=== PATIENT | female | born 1960 | race Caucasian/White ===

== ENCOUNTER → 2018-09-22 | Outpatient (CLI) | payer OTHER ==
--- NOTE | 2018-09-22 15:37 | Diagnostic Imaging Report ---
EXAMINATION: Renal ultrasound. CLINICAL HISTORY :Hematuria COMPARISON: <None available.> TECHNIQUE: Grayscale and color Doppler evaluation of the kidneys and bladder was performed in transverse and longitudinal planes. DISCUSSION: RIGHT KIDNEY: The right kidney measures 11.4 cm in length and shows normal renal cortical echogenicity. Mild fullness of the collecting system without overt hydronephrosis. No shadowing calculus or solid or cystic mass lesion. LEFT KIDNEY: The left kidney measures 10 cm in length and shows normal renal cortical echogenicity. 1.5 x 1.7 x 1.5 cm round anechoic structure without internal solid component or vascularity by color Doppler analysis, compatible with a simple cyst in the interpolar left kidney. No solid mass, hydronephrosis. BLADDER: Unremarkable. Right and left ureteral jets are identified. IMPRESSION: Mild fullness of the right renal collecting system may be a consequence of scan timing as the right ureteral-bladder jet was identified. In the setting of hematuria, consider CT urogram for more sensitive evaluation for renal-ureteral calculi. Simple left renal cyst. Signed by: Dr. Vineet Savage M.D. on 09/22/2018 3:33 PM
== END ==
LOC: US 13:44
PROVIDERS: ATTEND Internal Medicine
DX: R31.9 Hematuria, unspecified (principal)
CPT/HCPCS: 76770

== ENCOUNTER 2018-12-11 11:10 | Inpatient (IN) | payer OTHER ==
[~2018-12-11] VITALS: Ht 167.6 cm; Wt 75.8 kg
--- OUTSIDE RECORDS SUMMARY | 2018-12-11 11:12 | XMS REPORT ---
Author [facility] Address Unknown Phone Unavailable Care Team Providers Care Rug Receiving Clerk Name Role Phone Lisa SOLO Unavailable Unavailable Payers Payer Name Policy Type Policy Number Effective Date Expiration Date Problems This patient has no known problems. Allergies, Adverse Reactions, Alerts Allergy Name Allergy Type Status Severity Reaction(s) Onset Date Inactive Date Treating Clinician Comments No Known Allergies DA Active U 2018-04-22 00:00:00 No Known Allergies DA Active U 2015-05-18 00:00:00 Medications This patient has no known medications. Results Test Description Test Time Test Comments Text Results Atomic Results Result Comments US RENAL RETROPERITONEAL COMP 2018-09-22 15:29:00 [facility] [address] [place] [address] Patient Name: STACEY VANEGAS MR #: [id number] : 1960 Age/Sex: 57/F Req #: [id number] Adm Physician: Ordered by: MOOSE SOLO MD Report #: [id number] Location: US Room/Bed: Procedure: [id number] US/US RENAL RETROPERITONEAL COMP Exam Date: 09/22/18 Exam Time: 1408 REPORT STATUS: Signed EXAMINATION: Renal ultrasound. CLINICAL HISTORY :Hematuria COMPARISON: <None available.> TECHNIQUE: Grayscale and color Doppler evaluation of the kidneys and bladder was performed in transverse and longitudinal planes. DISCUSSION: RIGHT KIDNEY: The right kidney measures 11.4 cm in length and shows normal renal cortical echogenicity. Mild fullness of the collecting system without overt hydronephrosis. No shadowing calculus or solid or cystic mass lesion. LEFT KIDNEY: The left kidney measures 10 cm in length and shows normal renal cortical echogenicity. 1.5 x 1.7 x 1.5 cm round anechoic structure without internal solid component or vascularity by color Doppler analysis, compatible with a simple cyst in the interpolar left kidney. No solid mass, hydronephrosis. BLADDER: Unremarkable. Right and left ureteral jets are identified. IMPRESSION: Mild fullness of the right renal collecting system may be a consequence of scan timing as the right ureteral- bladder jet was identified. In the setting of hematuria, consider CT urogram for more sensitive evaluation for renal-ureteral calculi. Simple left renal cyst. Signed by: Dr. Odalis Drummond M.D. on 09/22/2018 3:33 PM Dictated By: ODALIS DRUMMOND MD [id number] Transcribed By: COLIN on 09/22/18 1533 COPY TO: MOOSE SOLO MD
[2018-12-11] MEDS ORDERED: ASPIRIN 81 MG CHEW TAB PO ONE ×3 (11:15→14:15)
[2018-12-11] MEDS ORDERED: NITROGLYCERIN 2% OINT 1 GM PKT TOP ONE (11:30)
[2018-12-11 11:40] LABS: BASOPHILS # (AUTO) 0.1 (0.0-0.1); BASOPHILS % 0.8 % (0.0-1.0); EOSINOPHILS # (AUTO) 0.6 (0.0-0.4); HEMATOCRIT 36.3 % (34.2-44.1); HEMOGLOBIN 12.1 g/dL (12.0-16.0); LYMPHOCYTES # (AUTO) 3.7 (1.0-3.2); LYMPHOCYTES % 36.6 % (18.0-39.1); MEAN CORPUSCULAR HEMOGLOBIN 30.2 pg (28-32); MEAN CORPUSCULAR HGB CONC 33.3 g/dL (31-35); MEAN CORPUSCULAR VOLUME 90.5 fL (81-99); MONOCYTES % 9.4 % (4.4-11.3); NEUTROPHILS # (AUTO) 4.8 (2.1-6.9); NEUTROPHILS % 46.7 % (38.7-80.0); PLATELET COUNT 268 x10e3/uL (140-360); RED BLOOD COUNT 4.01 x10e6/uL (3.6-5.1); RED CELL DISTRIBUTION WIDTH 13.7 % (11.7-14.4)
[2018-12-11 11:52] LABS: INR 0.91; PROTHROMBIN TIME 12.7 seconds (11.9-14.5)
[2018-12-11 11:53] LABS: PARTIAL THROMBOPLASTIN TIME 29.2 seconds (23.8-35.5)
[2018-12-11 11:57] LABS: ALANINE AMINOTRANSFERASE 23 IU/L (0-55); ALBUMIN 3.3 g/dL (3.5-5.0); ALKALINE PHOSPHATASE 104 IU/L (40-150); ANION GAP 12.6 mmol/L (8-16); BLOOD UREA NITROGEN 18 mg/dL (7-26); BUN/CREATININE RATIO 21 (6-25); CALCIUM 9.2 mg/dL (8.4-10.2); CARBON DIOXIDE 26 mmol/L (22-29); CHLORIDE 108 mmol/L (98-107); CREATINE KINASE 74 IU/L (29-168); CREATININE, SERUM 0.87 mg/dL (0.57-1.11); EST GLOMERULAR FILTRATION RATE > 60 ML/MIN (60-); GLUCOSE 107 mg/dL (74-118); POTASSIUM 3.6 mmol/L (3.5-5.1); SODIUM 143 mmol/L (136-145)
[2018-12-11 12:06] LABS: BILIRUBIN,URINE NEGATIVE (NEGATIVE); CLARITY,URINE HAZY (CLEAR); COLOR,URINE YELLOW (YELLOW); KETONES,URINE NEGATIVE (NEGATIVE); LEUKOCYTE ESTERASE ,URINE NEGATIVE (NEGATIVE); NITRITE,URINE NEGATIVE (NEGATIVE); PROTEIN,URINE DIPSTICK NEGATIVE (NEGATIVE); URINE UROBILINOGEN 0.2 mg/dL (0.2 - 1)
[2018-12-11 12:08] LABS: BACTERIA,URINE FEW /HPF; EPITHELIAL CELLS,URINE FEW /LPF; MUCUS,URINE MANY (RARE); WBC,URINE (MAN) 0-5 /HPF (0-5)
--- NOTE | 2018-12-11 12:30 | Diagnostic Imaging Report ---
Examination: Single AP view of the chest. COMPARISON: None. INDICATION: Chest pain IMPRESSION: 1. Lines and Tubes: None 2. Lungs are grossly clear. No consolidation or effusion. 3. Cardiomediastinal silhouette is normal. Pulmonary vasculature is normal. 4. No acute bony abnormalities. Signed by: Dr. William Gabriel M.D. on 12/11/2018 12:26 PM
[2018-12-11] MEDS ORDERED: KETOROLAC TROMETHAMINE 30 MG/ML VIAL IV ONE (13:30)
[2018-12-11] MEDS ORDERED: ONDANSETRON HCL INJ 2MG/ML 2ML 2 MG/ML VIAL IV ONE (13:30)
[2018-12-11] MEDS ORDERED: MORPHINE SULFATE INJ 4 MG/ML INJ 1ML IV ONE (13:30)
[2018-12-11] MEDS ORDERED: NITROGLYCERIN 0.4 MG SUBL SL PRN (14:15)
[2018-12-11] MEDS ORDERED: FAMOTIDINE 20 MG TAB PO SCH (14:15)
[2018-12-11] MEDS ORDERED: ONDANSETRON HCL INJ 2MG/ML 2ML 2 MG/ML VIAL IV PRN (14:15)
[2018-12-11 14:44] LABS: CREATINE KINASE MB 0.9 ng/mL (0-5.0)
--- NOTE | 2018-12-11 15:13 | NUR ---
received to rm 108 aaox3 no distress noted, assessment and hx complete, oriented to rm., respirations even/unlabored, r ac 20g no ss of infiltration noted, no other co voiced call light in reach will continue ot monitor
[2018-12-11] MEDS: MORPHINE SULFATE INJ 4 MG/ML INJ 1ML IV PRN ×2 (15:34→22:04)
[2018-12-11 15:50] VITALS: BP 122/57
[2018-12-11 16:33] VITALS: BP 122/57
[2018-12-11] MEDS ORDERED: ISOSORBIDE MONO30 MG PO (16:53)
[2018-12-11] MEDS ORDERED: COREG3.125 MG PO (16:53)
[2018-12-11] MEDS ORDERED: CLOPIDOGREL75 MG PO (16:53)
[2018-12-11] MEDS ORDERED: ASPIRIN81 MG PO (16:53)
[2018-12-11] MEDS ORDERED: POTASSIUM CHLO10 ME1 PO (16:53)
[2018-12-11] MEDS ORDERED: LOSARTAN POTASS25 MG PO (16:53)
[2018-12-11] MEDS ORDERED: BUPROPION HCL100 MG PO (16:53)
[2018-12-11] MEDS ORDERED: TIZANIDINE HCL4 M1 PO (16:53)
[2018-12-11] MEDS ORDERED: PEPCID20 MG PO (16:53)
[2018-12-11] MEDS ORDERED: FUROSEMIDE40 MG PO (16:53)
[2018-12-11] MEDS ORDERED: ATORVASTATIN CA80 MG PO (16:53)
--- NOTE | 2018-12-11 17:05 | NUR ---
paged Dr. Bazan re: continue of home medications awaiting call back
[2018-12-11] MEDS ORDERED: TIZANIDINE HCL 4 MG TAB PO PRN (17:30)
--- NOTE | 2018-12-11 19:15 | NUR ---
BEDSIDE SHIFT REPORT PERFORMED. RECEIVED PT (R) SIDE LAYING IN BED, AAOX3, RR EVEN AND NON-LABORED, O2 BY NC AT 1L. NO S/SX OF DISTRESS NOTED. LEFT PT (R) SIDE LAYING IN BED, BED IN LOW LOCKED POSITION, SIDE RAILS UPX2, CALL LIGHT AND PHONE WITHIN REACH.
[2018-12-11 20:00] VITALS: BP 105/54
[2018-12-11] MEDS: FAMOTIDINE 20 MG TAB PO SCH (21:47)
[2018-12-11] MEDS: CARVEDILOL 3.125 MG TAB PO SCH (21:47)
[2018-12-11] MEDS: ATORVASTATIN 40 MG TAB PO SCH (21:47)
[2018-12-11 21:51] VITALS: BP 105/54
[2018-12-11 22:44] LABS: CREATINE KINASE MB 0.9 ng/mL (0-5.0)
[2018-12-12] VITALS (8 sets, daily range): BP systolic 93–150; BP diastolic 50–65
--- NOTE | 2018-12-12 03:21 | History and Physical ---
CHIEF COMPLAINT: Chest pain since this morning. HISTORY OF PRESENT ILLNESS: This is a 58-year-old female with a past medical history of coronary artery disease, hypertension, hyperlipidemia, anxiety, depression, was in her usual state of health until the patient going through some stress in her life, going through divorce. The patient complained of the chest pain this morning with some anxiety with atypical chest pain. No GERD. Not radiating pain to the left or back. No shortness of breath. No hematemesis, no melena, no cough, no fever. No leg pain, no leg swelling. No seizures, no focal weakness. ALLERGIES: NO KNOWN DRUG ALLERGIES. PAST MEDICAL HISTORY: 1. CAD. 2. Hypertension. 3. Hyperlipidemia. 4. Anxiety. 5. Depression. PAST SURGICAL HISTORY: History of PTCA with stent last year. History of hysterectomy. SOCIAL HISTORY: The patient is . HABITS: Denies alcohol use, but smokes cigarettes, half pack per day for more than 20 years. FAMILY HISTORY: Positive for coronary artery disease. MEDICATIONS: List attached. REVIEW OF SYSTEMS: GENERAL: Denies fatigue or weakness. HEENT: No diplopia or blurred vision. CARDIOPULMONARY: No cough. Has some chest pain. No shortness of breath. ALIMENTARY SYSTEM: No nausea. No vomiting. No diarrhea. No constipation. GENITOURINARY SYSTEM: No dysuria. No hematuria. MUSCULOSKELETAL: No joint pain. CENTRAL NERVOUS SYSTEM: No focal weakness. PHYSICAL EXAMINATION: GENERAL: This is a 58-year-old female, who is alert and oriented x3, in no gross distress. VITAL SIGNS: Temperature 96.7, pulse 65, respiratory rate 18, blood pressure 122/57. HEENT: Head is atraumatic and normocephalic. Pupils bilaterally equal and reactive to light. Extraocular muscles are intact. NECK: Supple. No JVD. No carotid bruits. LUNGS: Clear to auscultation and percussion bilaterally. No added sounds. HEART: S1 and S2. Regular rate and rhythm. No S3, no S4 murmur. ABDOMEN: Soft and nontender. No guarding. No rigidity. EXTREMITIES: No edema. Peripheral pulse +1. FACILITIES OFFICER: Grossly nonfocal. LABORATORY DATA: Chest x-ray normal. EKG; normal sinus rhythm at 65 per minute, nonspecific ST-T changes. CBC, CMP, cardiac enzymes 2 sets negative. Urine, rbc plus. ASSESSMENT: 1. Unstable angina, rule out myocardial infarction. 2. Pulmonary artery disease, status post percutaneous transluminal coronary angioplasty stent last year. 3. Hyperlipidemia. 4. Hypertension. 5. Anxiety. 6. Depression. PLAN: Continue aspirin, Plavix, Cardiology consult with Dr. Mccormick. Lipid panel, BMP, and T4, TSH in morning. Continue all other home medicines. Case discussed with the patient. Also talk to the nursing staff. Condition and prognosis explained, and is guarded. MD ASAF Muse/CHUNG /[id number]
[2018-12-12 06:31] LABS: BASOPHILS # (AUTO) 0.1 (0.0-0.1); BASOPHILS % 0.8 % (0.0-1.0); EOSINOPHILS # (AUTO) 0.6 (0.0-0.4); EOSINOPHILS % 6.3 % (0.0-6.0); HEMATOCRIT 33.1 % (34.2-44.1); LYMPHOCYTES # (AUTO) 3.9 (1.0-3.2); MEAN CORPUSCULAR HEMOGLOBIN 29.9 pg (28-32); MEAN CORPUSCULAR HGB CONC 33.2 g/dL (31-35); MEAN CORPUSCULAR VOLUME 89.9 fL (81-99); MONOCYTES # (AUTO) 0.8 (0.2-0.8); MONOCYTES % 8.6 % (4.4-11.3); NEUTROPHILS # (AUTO) 4.1 (2.1-6.9); NEUTROPHILS % 43.1 % (38.7-80.0); PLATELET COUNT 241 x10e3/uL (140-360); RED BLOOD COUNT 3.68 x10e6/uL (3.6-5.1); RED CELL DISTRIBUTION WIDTH 13.7 % (11.7-14.4)
[2018-12-12 07:00] LABS: ANION GAP 11.2 mmol/L (8-16); BLOOD UREA NITROGEN 19 mg/dL (7-26); BUN/CREATININE RATIO 22 (6-25); CARBON DIOXIDE 27 mmol/L (22-29); CHLORIDE 108 mmol/L (98-107); CHOLESTEROL 129 MD/DL (0-199); CREATININE, SERUM 0.86 mg/dL (0.57-1.11); EST GLOMERULAR FILTRATION RATE > 60 ML/MIN (60-); GLUCOSE 86 mg/dL (74-118); HDL CHOLESTEROL 43 MG/DL (40-60); LDL CHOLESTEROL 66 MG/DL (60-130); POTASSIUM 4.2 mmol/L (3.5-5.1); SODIUM 142 mmol/L (136-145); TRIGLYCERIDES 100 MG/DL (0-149)
[2018-12-12 07:09] LABS: CREATINE KINASE MB 0.6 ng/mL (0-5.0)
[2018-12-12 07:22] LABS: FREE T4 (FREE THYROXINE) 0.76 ng/dL (0.9-1.8); THYROID STIMULATING HORMONE 0.669 uIU/mL (0.350-4.940)
--- NOTE | 2018-12-12 07:26 | NUR ---
RECEIVED PATIENT AND WALKING ROUNDS COMPLETE. PATIENT AWAKE RESTING IN BED NO SIGNS OF DISTRESS AT THIS TIME. CALL LIGHT IN REACH, BED LOW, WHEELS LOCKED, SIDE RAILS X2. FAMILY AT BEDSIDE. WILL CONTINUE TO MONITOR.
[2018-12-12] MEDS: CARVEDILOL 3.125 MG TAB PO SCH ×2 (08:05→21:25)
[2018-12-12] MEDS: LOSARTAN POTASSIUM 25 MG TAB PO SCH (08:06)
[2018-12-12] MEDS: ISOSORBIDE MONONITRATE 30 MG TAB CR PO SCH (08:23)
[2018-12-12] MEDS: FUROSEMIDE 40 MG TAB PO SCH (08:23)
[2018-12-12] MEDS: POTASSIUM CHLORIDE 10MEQ EA PO SCH (08:50)
[2018-12-12] MEDS: FAMOTIDINE 20 MG TAB PO SCH ×2 (08:50→21:25)
[2018-12-12] MEDS: BUPROPION HCL 100 MG TAB PO SCH (08:50)
[2018-12-12] MEDS: NICOTINE 14 MG/EA PATCH TOP SCH (08:50)
[2018-12-12] MEDS: ASPIRIN 81 MG CHEW TAB PO SCH (08:50)
[2018-12-12] MEDS: CLOPIDOGREL BISULFATE 75 MG TAB PO SCH (08:50)
[2018-12-12] MEDS ORDERED: ASPIRIN 325 MG TAB EC PO SCH (09:00)
--- NOTE | 2018-12-12 09:15 | NUR ---
PATIENT A/O X3, EVEN RESPIRATIONS ON RA. BOWEL SOUNDS ACTIVE, SKIN INTACT, NO EDEMA. PATIENT AMBULATORY WITH ASSISTANCE. TELE #29 SR. RIGHT AC 20 GAUGE IV SL INTACT AND PATENT. NO COMPLAINT OF CHEST PAIN AT THIS TIME. CALL LIGHT IN REACH, WHEELS LOCKED, BED LOW, SIDE RAILS X2. VITALS STABLE. WILL CONTINUE TO MONITOR PATIENT.
[2018-12-12] MEDS: MORPHINE SULFATE INJ 4 MG/ML INJ 1ML IV PRN ×2 (11:31→19:35)
[2018-12-12] MEDS ORDERED: ONDANSETRON HCL 4 MG ORAL DISINTEGRATING TAB PO PRN (14:45)
[2018-12-12] MEDS ORDERED: ACETAMINOPHEN 325 MG TAB PO PRN (20:45)
--- NOTE | 2018-12-12 21:00 | NUR ---
C/O headache .notified to dr.patel strong.ordred tylenol po.assessment done.no resp.distress.no chest pain voiced.taken shower.bed locked and in lowest position.phone and call light within reach. instructed to call for assistance as needed.
[2018-12-12] MEDS: ATORVASTATIN 40 MG TAB PO SCH (21:25)
--- NOTE | 2018-12-12 23:26 | Consultation ---
DATE OF CONSULTATION: Cardiology consultation. HISTORY OF PRESENT ILLNESS: This is a 58-year-old woman with a history of hypertension, hyperlipidemia, anxiety/depression, coronary artery disease status post percutaneous coronary intervention, and tobacco use, who presented to the emergency department with chest pain. The patient states that she developed a central and left-sided chest pain, mild to moderate in intensity, no exacerbating or relieving factors, nonexertional symptoms, associated with some shortness of breath. The patient states that she is undergoing a lot of stress in her life. PAST MEDICAL HISTORY: As stated above. PAST SURGICAL HISTORY: Percutaneous coronary intervention. PAST FAMILY HISTORY: No premature coronary artery disease or sudden cardiac . ALLERGIES: NO KNOWN DRUG ALLERGIES. MEDICATIONS: See medication reconciliation form. PHYSICAL EXAMINATION: VITAL SIGNS: She is afebrile, heart rate 67, respirations 18, blood pressure is 109/55, ox saturation is 99% on room air. GENERAL: Well appearing, well built, no apparent distress. Alert and oriented x3. HEAD: Normocephalic, atraumatic. EYES: The extraocular muscles are intact. Conjunctivae are clear. NECK: No JVD. No bruits. CARDIOVASCULAR: Regular rate and rhythm. LUNGS: Clear to auscultation bilaterally. No wheezing or rales. ABDOMEN: Soft, nontender, nondistended. Normoactive bowel sounds. EXTREMITIES: No clubbing, cyanosis, or edema. VASCULAR: 2+ pulses. SKIN: Warm, dry, intact. NEUROLOGIC: No focal deficits noted. Cranial nerves grossly intact. PSYCHIATRIC: Normal mood and affect. LABORATORY DATA: Reviewed. Cardiac enzymes negative x3. Creatinine 0.86. 12-lead electrocardiogram showed normal sinus rhythm. IMPRESSION: 1. Precordial pain. 2. Hypertension. 3. Hyperlipidemia. 4. Coronary artery disease status post percutaneous coronary intervention. 5. Anxiety and depression. RECOMMENDATIONS: The patient ruled out for acute myocardial infarction. She has negative cardiac enzymes. We will check a 2D echocardiogram to assess left ventricular systolic function. Given her risk factors and symptoms, we will proceed with stress testing. DO JUAN RAMON Zapien/MODL /[id number]
[2018-12-13] VITALS (8 sets, daily range): BP systolic 91–113; BP diastolic 45–59
--- NOTE | 2018-12-13 07:00 | NUR ---
Report given to the oncoming rn.walking rounds done.stable condition.
[2018-12-13 07:12] LABS: BASOPHILS # (AUTO) 0.1 (0.0-0.1); BASOPHILS % 0.7 % (0.0-1.0); EOSINOPHILS # (AUTO) 0.5 (0.0-0.4); EOSINOPHILS % 5.1 % (0.0-6.0); HEMATOCRIT 34.1 % (34.2-44.1); HEMOGLOBIN 11.4 g/dL (12.0-16.0); LYMPHOCYTES # (AUTO) 3.5 (1.0-3.2); MEAN CORPUSCULAR HEMOGLOBIN 30.2 pg (28-32); MEAN CORPUSCULAR HGB CONC 33.4 g/dL (31-35); MEAN CORPUSCULAR VOLUME 90.5 fL (81-99); MONOCYTES # (AUTO) 0.8 (0.2-0.8); MONOCYTES % 8.6 % (4.4-11.3); NEUTROPHILS % 45.1 % (38.7-80.0); PLATELET COUNT 239 x10e3/uL (140-360); RED BLOOD COUNT 3.77 x10e6/uL (3.6-5.1); RED CELL DISTRIBUTION WIDTH 13.8 % (11.7-14.4)
[2018-12-13 07:27] LABS: ALANINE AMINOTRANSFERASE 13 IU/L (0-55); ALBUMIN/GLOBULIN RATIO 1.1 (0.8-2.0); ALKALINE PHOSPHATASE 83 IU/L (40-150); ANION GAP 9.8 mmol/L (8-16); CALCIUM 8.9 mg/dL (8.4-10.2); CARBON DIOXIDE 26 mmol/L (22-29); CHLORIDE 107 mmol/L (98-107); CREATININE, SERUM 0.81 mg/dL (0.57-1.11); EST GLOMERULAR FILTRATION RATE > 60 ML/MIN (60-); GLUCOSE 87 mg/dL (74-118); POTASSIUM 3.8 mmol/L (3.5-5.1); SODIUM 139 mmol/L (136-145)
--- NOTE | 2018-12-13 07:46 | NUR ---
RECEIVED PATIENT AWAKE RESTING IN BED NO SIGNS OF DISTRESS AT THIS TIME. CALL LIGHT IN REACH, BED LOW, WHEELS LOCKED, SIDE RAILS X2. NO SIGNS OF DISTRESS AT THIS TIME. WILL CONTINUE TO MONITOR PATIENT.
[2018-12-13 07:55] LABS: BLOOD UREA NITROGEN 16 mg/dL (7-26); BUN/CREATININE RATIO 20 (6-25)
[2018-12-13] MEDS: POTASSIUM CHLORIDE 10MEQ EA PO SCH (08:06)
[2018-12-13] MEDS: CARVEDILOL 3.125 MG TAB PO SCH ×2 (08:06→21:00)
[2018-12-13] MEDS: ISOSORBIDE MONONITRATE 30 MG TAB CR PO SCH (08:06)
[2018-12-13] MEDS: LOSARTAN POTASSIUM 25 MG TAB PO SCH (08:06)
[2018-12-13] MEDS: ASPIRIN 81 MG CHEW TAB PO SCH (08:06)
[2018-12-13] MEDS: FAMOTIDINE 20 MG TAB PO SCH ×2 (08:07→20:12)
[2018-12-13] MEDS: BUPROPION HCL 100 MG TAB PO SCH (08:07)
[2018-12-13] MEDS: FUROSEMIDE 40 MG TAB PO SCH (08:07)
[2018-12-13] MEDS: CLOPIDOGREL BISULFATE 75 MG TAB PO SCH (08:07)
[2018-12-13] MEDS: NICOTINE 14 MG/EA PATCH TOP SCH (09:35)
[2018-12-13] MEDS ORDERED: ALBUTEROL SULF 0.083% NEB SOLN 3 ML NEB NEB PRN (10:15)
[2018-12-13] MEDS ORDERED: ALBUTEROL SULFATE HFA 8GM INHALATION AEROSOL INH PRN (10:15)
[2018-12-13] MEDS ORDERED: BUDESONIDE/FORMOTEROL 160/4.5MCG INHALER INH SCH (12:00)
[2018-12-13] MEDS ORDERED: REGADENOSON 0.4 MG/5 ML SYR IV ONE (12:19)
--- NOTE | 2018-12-13 12:22 | NUR ---
PATIENT LEFT UNIT FOR STRESS TEST AT THIS TIME.
--- NOTE | 2018-12-13 14:13 | NUR ---
PATIENT BACK FROM STRESS TEST AT THIS TIME.
[2018-12-13] MEDS: MORPHINE SULFATE INJ 4 MG/ML INJ 1ML IV PRN ×2 (14:25→20:12)
--- NOTE | 2018-12-13 20:10 | NUR ---
Assessment done.no resp.distress.pain medication given.tolerated diet.bed locked and in lowest position.phone and call light within reach.instructed to call for assistance as needed.
[2018-12-13] MEDS: ATORVASTATIN 40 MG TAB PO SCH (20:12)
--- NOTE | 2018-12-13 21:06 | Progress Note ---
DATE: Cardiology Progress Note SUBJECTIVE: The patient had atypical episodes of chest pain overnight. Stress test performed. OBJECTIVE: VITAL SIGNS: Temperature is 97.8, heart rate is 64, respirations are 16, blood pressure is 111/53, and oxygen saturation 99% on 2 L of nasal cannula. GENERAL: Well appearing, well built, in no apparent distress. CARDIOVASCULAR: Regular rate and rhythm. LUNGS: Clear to auscultation bilaterally. No wheezes or rales. ABDOMEN: Soft, nontender, nondistended. EXTREMITIES: No edema. VASCULAR: 2+ pulses. LABORATORY DATA: Reviewed. CARDIOVASCULAR MEDICATIONS: Reviewed. Telemetry monitoring revealed normal sinus rhythm. Myocardial perfusion images revealed anterior ischemia. ASSESSMENT: 1. Precordial pain. 2. Abnormal stress test showing anterior ischemia. 3. Hypertension. 4. Hyperlipidemia. 5. History of coronary artery disease, status post percutaneous coronary intervention. 6. Anxiety and depression. PLAN/RECOMMENDATIONS: Continue current cardiovascular medications. Check a 2D echocardiogram. Her stress test showed anterior ischemia and will likely need coronary angiography with possible intervention while inpatient. DO JUAN RAMON Zapien/MODL /[id number]
[2018-12-14] VITALS (12 sets, daily range): BP systolic 96–152; BP diastolic 53–68
--- NOTE | 2018-12-14 07:45 | NUR ---
BEDSIDE REPORT GIVEN. PT RESTING QUIETLY.
--- NOTE | 2018-12-14 08:02 | NUR ---
Report given to the oncoming rn.walking rounds done.stable condition.
[2018-12-14] MEDS: CARVEDILOL 3.125 MG TAB PO SCH ×2 (09:00→20:58)
[2018-12-14] MEDS: ASPIRIN 81 MG CHEW TAB PO SCH (09:00)
[2018-12-14] MEDS: BUPROPION HCL 100 MG TAB PO SCH (09:00)
[2018-12-14] MEDS: FUROSEMIDE 40 MG TAB PO SCH (09:00)
[2018-12-14] MEDS: LOSARTAN POTASSIUM 25 MG TAB PO SCH (09:00)
[2018-12-14] MEDS: CLOPIDOGREL BISULFATE 75 MG TAB PO SCH (09:00)
[2018-12-14] MEDS: POTASSIUM CHLORIDE 10MEQ EA PO SCH (09:00)
[2018-12-14] MEDS: FAMOTIDINE 20 MG TAB PO SCH ×2 (09:00→20:58)
[2018-12-14] MEDS: ISOSORBIDE MONONITRATE 30 MG TAB CR PO SCH (09:00)
[2018-12-14] MEDS: NICOTINE 14 MG/EA PATCH TOP SCH (09:18)
--- NOTE | 2018-12-14 11:15 | NUR ---
60cc of serosanguinous fluid collected in RODDY drain at this time. C/o pain, 03/25 to ABD.
--- NOTE | 2018-12-14 17:02 | NUR ---
1700pm received call form Dr Helms, ready for for lab director procedure [facility] via radial approach. Assisted pt to lab director with Damir RN and Juany [employer] on escort ,prepped in usual fashion. Denies active CP or SOB on room air.Consent completed. Valuables with son (cell phone and purse given to him per pt request ,son is Power son ([phone]) who will be available at that number. Rt arm saline lock appears intact w/o s/s inflammation . Pedal pulses unable to palpate bilateral feet warm to touch. Report of pt transfer and valuables with family to Nirmala WOODS Rm 109 bedside nurse. ds/rn
[2018-12-14] MEDS ORDERED: MIDAZOLAM HCL 2 MG/2 ML VIAL ONE ×3 (17:08→17:42)
[2018-12-14] MEDS ORDERED: VERAPAMIL HCL 2.5 MG/ML 2 ML VIAL ONE (17:08)
[2018-12-14] MEDS ORDERED: FENTANYL CITRATE/PF 100MCG/2 ML INJ ONE (17:08)
[2018-12-14] MEDS ORDERED: HEPARIN SOD (PORCINE) 1000 UNIT/ML 30ML ONE (17:08)
[2018-12-14] MEDS ORDERED: NITROGLYCERIN/D5W 200 MCG/ML 250 ML ONE (17:09)
[2018-12-14] MEDS ORDERED: IOPAMIDOL 370 MG/ML 200 ML INFUS..BTL INJ ONE (17:09)
[2018-12-14] MEDS ORDERED: HEPARIN SOD/SOD CHLORIDE 2,000 ML ONE (17:09)
[2018-12-14] MEDS ORDERED: SODIUM CHLORIDE 0.9% 1000ML 1,000 ML ONE (17:09)
[2018-12-14] MEDS ORDERED: LIDOCAINE HCL 2% LOCAL 20 ML VIAL ONE (17:22)
--- NOTE | 2018-12-14 18:10 | NUR ---
TR bend reduced by 2ml. + Neurovascular function. No s/s of bleeding.
--- NOTE | 2018-12-14 18:20 | NUR ---
TR bend reduced by 2ml. + Neurovascular function. No s/s of bleeding.
--- NOTE | 2018-12-14 18:30 | NUR ---
TR bend reduced by 2ml. + Neurovascular function. No s/s of bleeding.
--- NOTE | 2018-12-14 18:40 | NUR ---
TR bend reduced by 2ml. + Neurovascular function. No s/s of bleeding.
--- NOTE | 2018-12-14 19:00 | NUR ---
TR band removed and occlusive dressing applied. education provided for care. pt verbaliizes understanding. No issues of pressure pallor pain or dysrhythmia -cgf
--- NOTE | 2018-12-14 19:40 | NUR ---
Report provided to grzegorz WOODS, review of procedural findings and medications given. Patient alert and oriented x3. maintains airway and room air saturations of 99-100%. No gross issues of pressure, pain, pallor or dysrhythmia. IV site patent with NS 0.9% at KVO by dial-flow. patient hemodynamically stable with hemostasis.. right radial dressing CDI w/o s/s of bleeding. patient transferred to [facility] by [facility] transported on telemetry - [facility] [place] procedure: DX Left heart cath and coronary angiography Sheath puller: Chan ANDERSON applied TR band 10ml Meds Given Intra-Procedure Sedatives Versed - 3 mg Fentanyl - 75 mcg Radial Cocktail Heparin - 3000 Units Nitro - 200mcg Verapamil - 1mg Fluids Input - 300ml Output - dtv Contrast Isovue 370 - 80ml
[2018-12-14] MEDS: MORPHINE SULFATE INJ 4 MG/ML INJ 1ML IV PRN (20:37)
[2018-12-14] MEDS: ATORVASTATIN 40 MG TAB PO SCH (20:58)
--- NOTE | 2018-12-14 21:30 | NUR ---
Discharge order placed by Dr. Bazan. D/C instructions given to patient, voices understanding. Patient is A&Ox4, ambulatory w/o assist. Respirations even & unlabored, no distress noted. Tele # 29 d/c. IV to R AC d/C, pressure applied and 4x4 gauze placed. Patient has right wrist brace in place & wrapped with coban dressing, no bleeding noted to surrounding area. Patient was escorted to front lobby via wheelchair in stable condition.
--- NOTE | 2018-12-14 21:47 | Progress Note ---
DATE: Cardiology Progress Note SUBJECTIVE: The patient is feeling better, denies any typical angina or shortness of breath. OBJECTIVE: VITAL SIGNS: Temperature is 97.3, heart rate is 60, respirations are 18, blood pressure is 139/63, oxygen saturation 100% on room air. GENERAL: Well-appearing, well-built, no apparent distress. CARDIOVASCULAR: Regular rate and rhythm. No murmurs. LUNGS: Clear to auscultation bilaterally. No wheezing or rales. ABDOMEN: Soft, nontender, nondistended. EXTREMITIES: Diminished pulses. LABORATORY DATA: Reviewed. CARDIOVASCULAR MEDICATIONS: Reviewed. IMPRESSION: 1. Precordial pain. 2. Coronary artery disease with patent stent in the right coronary artery with nonobstructive disease elsewhere. 3. Hypertension. 4. Hyperlipidemia. 5. Peripheral artery disease. 6. Carotid disease. RECOMMENDATIONS: The patient was found to have no significant coronary artery stenotic lesions today. She has a patent stent in the RCA. Continue dual antiplatelet therapies and all other current guideline directed medical therapy for coronary artery disease. The patient's peripheral arterial disease will be addressed as an outpatient. She may be discharged from a cardiovascular standpoint. Hernandez Helms DO BM/MODL /[id number]
--- NOTE | 2018-12-15 00:52 | Operative Report ---
DATE OF PROCEDURE: SURGEON: Hernandez Helms DO PROCEDURES PERFORMED: 1. Conscious sedation, 26 minutes. 2. Selective coronary angiography x2. 3. Left heart catheterization. PREPROCEDURE DIAGNOSIS: Coronary artery disease with abnormal stress test. POSTPROCEDURE DIAGNOSIS: Nonobstructive coronary artery disease. ESTIMATED BLOOD LOSS: Less than 10 mL. SPECIMENS REMOVED: None. PROCEDURE IN DETAIL: After informed consent was obtained, the patient was brought to the cardiac catheterization laboratory in a fasting and nonsedated state. Bilateral groins and right wrist were prepped and draped in the usual sterile fashion. A 2% lidocaine was infiltrated over the right wrist for local anesthesia. Using micropuncture needle, the right radial artery was accessed via modified Seldinger technique and a 6-Slovenian sheath was placed. Next, diagnostic coronary angiography and left heart catheterization were performed using a TIG catheter. Hemostasis was achieved via TR band. The patient tolerated the procedure well with no immediate complications, transferred back to room in stable condition. PROCEDURE FINDINGS: 1. Left main coronary artery is patent without significant disease. 2. Left anterior descending coronary has a mild 20% mid LAD stenosis. 3. Left circumflex coronary artery provides two obtuse marginal vessels. The mid left circumflex itself has a mild 30% stenosis. 4. The right coronary artery is a dominant vessel and provides posterior descending coronary artery. The RCA has a proximal stent that is patent. The mid to distal portion has diffuse mild disease. 5. Left ventricular end-diastolic pressure was 14 mmHg with no aortic valve gradient present upon pullback. IMPRESSION AND PLAN: The patient presented with chest pain, was found to have abnormal stress test. She was found to have nonobstructive coronary artery disease today. Recommend medical management. Hernandez Helms DO BM/MODL /[id number]
--- NOTE | 2018-12-15 16:50 | Discharge Summary ---
HISTORY: This is a 58-year-old female patient presented to the emergency room with complaint of chest pain, shortness of breath, cough, and wheezing. ADMITTING IMPRESSION AND DIAGNOSES: Unstable angina as well as coronary artery disease and previous PTCA and with stent placement last year, hypertension, hyperlipidemia, COPD, anxiety, and depression. HOSPITAL COURSE SUMMARY: The patient was admitted with above diagnosis. The patient had been given aspirin and Plavix and Cardiology consult by Dr. Helms was done. The patient was given aspirin and beta-stefani. NH was ruled out. The patient was taken for nuclear stress test, which was abnormal with anterior defect, so the patient was taken for angiogram. The patient had an angiogram done and this had a patent graft and minimal vascular disease, does not require any intervention, but patient will need aggressive medical therapy. The patient will be discharged home on a high dose statin, Lipitor 80 mg, aspirin, Coreg, Plavix, and isosorbide. The patient does have a peripheral artery disease, as well as carotid artery disease. Further patient will need outpatient workup. The patient was advised to be discharged home and follow up with me as outpatient. MD MELIA Bernal/MODL /[id number]
--- NOTE | 2018-12-16 17:48 | Myoview Stress Test ---
DATE OF STUDY: 12/12/2018 12:02:00 Stress Test - Treadmill ONLY REASON FOR PROCEDURE: Chest pain. STRESS SUMMARY: The patient underwent stress testing utilizing Lexiscan under the usual protocol. Baseline heart rate increased from 66 per minute at rest to 94 beats per minute. The patient's blood pressure dropped from 113/56 to 105/51. The patient listed no cardiac symptoms throughout the stress summary. ELECTROCARDIOGRAPHIC STRESS TEST SUMMARY: Baseline 12-lead electrocardiogram showed normal sinus rhythm with nonspecific ST-T wave abnormalities. There was no ST deviations or arrhythmias noted throughout the stress protocol. MYOCARDIAL PERFUSION IMAGING: The patient received technetium-99m sestamibi at rest and stress. The images revealed a small mild anterior reversible perfusion defect. CONCLUSIONS: 1. Normal hemodynamic, clinical, electrocardiographic Lexiscan stress test. 2. Abnormal myocardial perfusion imaging showing a small mild anterior ischemic territory. 3. Normal left ventricular ejection fraction estimated at 59%. DO JUAN RAMON Zapien/AFSANEHL /[id number]
== END 2018-12-14 21:31 | disposition home or self-care (01) | DRG 287 ==
LOC: ER 11:10 → ERHOLD 14:12 → INTOOBSV 14:12 → MED/SURG 15:06 → OBSVTOIN 12-14 14:23
PROVIDERS: ADMIT Internal Medicine; ATTEND Internal Medicine
PROC: 4A023N7 Measurement of Cardiac Sampling and Pressure, Left Heart, Percutaneous Approach (ICD-10-PCS; principal; 2018-12-14)
PROC: B2111ZZ Fluoroscopy of Multiple Coronary Arteries using Low Osmolar Contrast (ICD-10-PCS; 2018-12-14)
PROC: B2151ZZ Fluoroscopy of Left Heart using Low Osmolar Contrast (ICD-10-PCS; 2018-12-14)
DX: I25.110 Atherosclerotic heart disease of native coronary artery with unstable angina pectoris (principal); I10 Essential (primary) hypertension; F17.200 Nicotine dependence, unspecified, uncomplicated; F41.9 Anxiety disorder, unspecified; F32.9 Major depressive disorder, single episode, unspecified; E78.5 Hyperlipidemia, unspecified; I73.9 Peripheral vascular disease, unspecified; Z95.5 Presence of coronary angioplasty implant and graft; J44.9 Chronic obstructive pulmonary disease, unspecified; R94.39 Abnormal result of other cardiovascular function study; Z79.899 Other long term (current) drug therapy
CPT/HCPCS: 36415; 71045; 78452; 80048; 80053; 80061; 81001; 82550; 82553; 83880; 84439; 84443; 84484; 85025; 85610; 85730; 87086; 93005; 93017; 93306; 93458; 94640; 99284; A9502; C1887; G0378; J1644; J1885; J2001; J2250; J2270; J2405; J7030; Q9967

== ENCOUNTER 2019-01-05 07:21 | Observation (INO) | payer OTHER ==
[2019-01-02 14:20] LABS: BASOPHILS # (AUTO) 0.1 (0.0-0.1); EOSINOPHILS # (AUTO) 0.5 (0.0-0.4); EOSINOPHILS % 4.8 % (0.0-6.0); HEMATOCRIT 39.8 % (34.2-44.1); HEMOGLOBIN 13.5 g/dL (12.0-16.0); LYMPHOCYTES # (AUTO) 3.4 (1.0-3.2); LYMPHOCYTES % 34.2 % (18.0-39.1); MEAN CORPUSCULAR HEMOGLOBIN 30.5 pg (28-32); MEAN CORPUSCULAR HGB CONC 33.9 g/dL (31-35); MONOCYTES # (AUTO) 1.2 (0.2-0.8); MONOCYTES % 11.6 % (4.4-11.3); NEUTROPHILS # (AUTO) 4.8 (2.1-6.9); NEUTROPHILS % 48.1 % (38.7-80.0); PLATELET COUNT 282 x10e3/uL (140-360); RED BLOOD COUNT 4.42 x10e6/uL (3.6-5.1); RED CELL DISTRIBUTION WIDTH 13.1 % (11.7-14.4)
[2019-01-02 14:30] LABS: INR 0.93
[2019-01-02 14:39] LABS: ALANINE AMINOTRANSFERASE 19 IU/L (0-55); ALBUMIN/GLOBULIN RATIO 1.1 (0.8-2.0); ALKALINE PHOSPHATASE 108 IU/L (40-150); ANION GAP 13.4 mmol/L (8-16); BLOOD UREA NITROGEN 17 mg/dL (7-26); BUN/CREATININE RATIO 18 (6-25); CALCIUM 9.8 mg/dL (8.4-10.2); CARBON DIOXIDE 26 mmol/L (22-29); CHLORIDE 103 mmol/L (98-107); CREATININE, SERUM 0.94 mg/dL (0.57-1.11); EST GLOMERULAR FILTRATION RATE > 60 ML/MIN (60-); GLUCOSE 84 mg/dL (74-118); POTASSIUM 4.4 mmol/L (3.5-5.1); SODIUM 138 mmol/L (136-145)
[2019-01-05] VITALS (25 sets, daily range): BP systolic 109–155; BP diastolic 50–80
[~2019-01-05] VITALS: Ht 167.6 cm; Wt 73.5 kg
[~2019-01-05 07:21] MED LIST: ASPIRIN81 MG PO; ATORVASTATIN CA80 MG PO; BUPROPION HCL100 MG PO; CLOPIDOGREL75 MG PO; COREG3.125 MG PO; FUROSEMIDE40 MG PO; ISOSORBIDE MONO30 MG PO; LOSARTAN POTASS25 MG PO; NICOTINE PATCH1 EAC5 TD; NITROGLYCERIN0.4 MG SL; PEPCID20 MG PO; POTASSIUM CHLO10 ME1 PO; PROAIR HFA INH8.5 GM INH; SYMBICORT 80-10.2 GM INH; TIZANIDINE HCL4 M1 PO; ULTRAM50 MG PO
[2019-01-05] MEDS ORDERED: FENTANYL CITRATE/PF 100MCG/2 ML INJ ONE ×2 (09:31→11:45)
[2019-01-05] MEDS ORDERED: IOPAMIDOL 300MG/ML 100 ML INFUS..BTL IV ONE ×2 (09:31→11:26)
[2019-01-05] MEDS ORDERED: LIDOCAINE HCL 2% LOCAL 20 ML VIAL ONE ×2 (09:31→11:26)
[2019-01-05] MEDS ORDERED: MIDAZOLAM HCL 2 MG/2 ML VIAL ONE ×3 (09:31→11:45)
[2019-01-05] MEDS ORDERED: SODIUM CHLORIDE 0.9% 1000ML 1,000 ML ONE ×2 (09:31→11:52)
[2019-01-05] MEDS ORDERED: HEPARIN SOD/SOD CHLORIDE 2,000 ML ONE ×2 (09:31→11:26)
[2019-01-05] MEDS ORDERED: VERAPAMIL HCL 2.5 MG/ML 2 ML VIAL ONE (11:52)
[2019-01-05] MEDS ORDERED: VANCOMYCIN 1GM/NS 250 ML 250 ML ONE (12:30)
--- NOTE | 2019-01-05 13:00 | NUR ---
1300pm Received pt in rm #10. Peripheral Analia left sheath. 6fr sheath in place last act 209. 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 No Hematoma or bleeding. No gross issues pain pallor pressure or dsytrthmia. Respiration shallow and regular. 100% room air. Iv infusing vancomycin. No s/s infiltration. Abdomen soft and non tender denies necessity to defecate or urinate. Sister Nenita at bedside. [phone] Offered ice chip only due to sheath still in place. Dr Helms at bedside to explain procedural results. 1330 state has 7/10 rt leg pain asked Dr Helms ok to give 4mg Morphine ivp did get pain relief results of 3/10 with in 15minutes 1345 ACT 196 1400 family will return later for post procedural dc planning checo/tamar
[2019-01-05] MEDS ORDERED: ATROPINE SULFATE 0.1 MG/ML 10ML SYR ONE (13:20)
[2019-01-05] MEDS ORDERED: MORPHINE SULFATE INJ 4 MG/ML INJ 1ML ONE ×2 (13:32→17:36)
--- NOTE | 2019-01-05 15:30 | NUR ---
1530 handoff to Damir WOODS aware to perform ACT @1545pm Left groin sheath with no hematoma or oozing PPx4 present No gross issues with pain pallor or dysthymia.Posterior Rt popliteal dressing Mynx dry and intact. Void qs x2 Tolerated po intact. VS and EKG stable. Last ACT 185 at 1445pm. Denies CP or SOB Ok to admit to tele observation status till dc after 9pm. Dr Taylor Service. ds/rn
--- NOTE | 2019-01-05 15:45 | NUR ---
ACT 158, DC criteria met. POC explained to patient. VS wnl. - cgf
--- NOTE | 2019-01-05 16:10 | NUR ---
pt supine and instructions provided. VS q5 initiated, atropine at bedside, and pedal pulses palpable 6 fr long sheath DC'd by Tray Zaragoza RTr with manual pressure applied to site-cgf
--- NOTE | 2019-01-05 16:35 | NUR ---
Hemostasis achieved. occlusive dressing applied byt Tray RTr. VS wnl, no s/s of distress during or immediate after. Family not available at this time. Bed low and locked, siderails up X2, call light at side. PO fluids provided. - cgf
--- NOTE | 2019-01-05 17:11 | NUR ---
3930 Lizett Johnston Rn, talked with Dr Mccormick per phone call pt admission to Dr Mccormick for Dr Helms Pls call Dr teodora Helms for further issues. checo/tamar
--- NOTE | 2019-01-05 17:40 | NUR ---
pt w/ visible distress. VS wnl and trend. pt c/o pain to left groin and right popliteal unremarkable. 4mg morphine give IVP. questionable area of firmness tender to touch. moderate pressure applied for 10 minutes. pt claiming increased comfort of left groin radiating to umbilical area despite pressure being applied to left groin. questionable area soft. no change in VS
--- NOTE | 2019-01-05 18:45 | NUR ---
Report provided to Thania WOODS, review of procedural findings and medications given. Patient alert and awake. maintains airway and room air saturations of 98-100%. No gross issues of pressure, pain, pallor or dysrhythmia. IV site patent saline locked after 1 liter infused. patient hemodynamically stable with hemostasis left groin dressing CDI w/o s/s of bleeding. right popliteal dressing CDI. some bruising. patient transferred to [facility] on telemetry. 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
[2019-01-05] MEDS ORDERED: HYDROCODONE/APAP 5MG-325MG TAB PO PRN (20:00)
--- NOTE | 2019-02-03 00:29 | Operative Report ---
DATE OF PROCEDURE: 01/05/2019 SURGEON: Hernandez Helms DO PROCEDURES PERFORMED: 1. Abdominal aortography. 2. Third-order peripheral angiography of the right lower extremity. 3. Atherectomy and percutaneous transluminal angioplasty of the right common femoral artery. 4. Percutaneous transluminal angioplasty of the superficial femoral artery. 5. Conscious sedation 90 minutes. PREPROCEDURE DIAGNOSIS: Peripheral artery disease. POSTPROCEDURE DIAGNOSIS: Peripheral artery disease. ESTIMATED BLOOD LOSS: Less than 30 mL. SPECIMENS REMOVED: None. PROCEDURE IN DETAIL: After informed consent was obtained, the patient was brought to the cardiac catheterization laboratory in a fasting and nonsedated state. Bilateral groins were prepped and draped in the usual sterile. The left common femoral artery was accessed via modified Seldinger technique with placement of a 5-Lithuanian sheath. Next, abdominal aortography was performed using Omni Flush catheter. Next, this was taken up over the iliac bifurcation, placed in the third-order position and peripheral angiography revealed a significant 70% stenosis of the right common femoral artery with a 40 mm hemodynamic gradient with a long chronic total occlusion of the entire superficial femoral artery and 3-vessel runoff. Next, the patient received systemic heparin for therapeutic anticoagulation. Next, I crossed up and over a 45 cm sheath. Next, the lesion was crossed with a 0.035 wire with backup support catheter. Next, I performed balloon angioplasty with a 7 mm balloon Lutonix drug-coated balloon. Next, I performed orbital atherectomy of the common femoral and dilated with a 7 mm drug-coated balloon. The patient tolerated the procedure well with no immediate complications, transferred back to room in stable condition. At the end of the case, there was patency of all vessels with 3-vessel runoff. Hemostasis was achieved via Mynx device. PROCEDURE FINDINGS: 1. The abdominal aorta and bilateral iliac systems are patent. 2. The right common femoral artery has 70% stenosis and there is a long chronic total occlusion of the superficial femoral artery. There is patency of the distal popliteal and 3-vessel runoff of the lower extremities. IMPRESSION: Severe peripheral artery disease, status post intervention of the right common femoral and superficial femoral artery. Continue aggressive medical therapy. Hernandez Helms DO BM/MODL /[id number]
== END 2019-01-05 21:33 | disposition home or self-care (01) ==
LOC: CATH LAB 07:21 → IMCU 18:31
PROVIDERS: ADMIT Internal Medicine Interventional Cardiology; ATTEND Internal Medicine Interventional Cardiology
DX: I73.9 Peripheral vascular disease, unspecified (principal); I70.92 Chronic total occlusion of artery of the extremities; I10 Essential (primary) hypertension; E78.00 Pure hypercholesterolemia, unspecified; I25.2 Old myocardial infarction; J44.9 Chronic obstructive pulmonary disease, unspecified
CPT/HCPCS: 36415; 37225; 75625; 75710; 80053; 85025; 85610; C1724; C1725; C1760; C1769 ×2; C1887 ×3; C2623; G0378; J2001; J2250; J2270; J3370; J7030; Q9967; 36247; 37186; 37224

== ENCOUNTER → 2019-01-10 | Outpatient (CLI) | payer OTHER ==
--- NOTE | 2019-01-10 08:55 | Diagnostic Imaging Report ---
EXAM: Limited right forearm ultrasound INDICATION: Localized swelling, query mass. COMPARISON: None. TECHNIQUE: Limited ultrasound was performed of the right forearm laterally in the area of clinical concern. Ultrasound was performed of left lateral forearm for comparison. FINDINGS/IMPRESSION: No sonographic abnormality. No evidence of mass or fluid collection. Signed by: Dr. Devendra Llamas MD on 01/10/2019 8:52 AM
--- NOTE | 2019-01-11 13:39 | Diagnostic Imaging Report ---
#[id number] - MGSCRBIL #BILATERAL DIGITAL SCREENING MAMMOGRAM WITH CAD: 01/10/2019 CLINICAL: Routine screening. No prior exams were available for comparison. The tissue of both breasts is predominantly fatty. Current study was also evaluated with a Computer Aided Detection (CAD) system. No significant masses, calcifications, or other findings are seen in either breast. IMPRESSION: NEGATIVE There is no mammographic evidence of malignancy. A 1 year screening mammogram is recommended. The patient will be notified by letter of the results. MECHELLE YANG M.D., mc/gagan:01/11/2019 12:15:15 [employer]: [place] WESLEY)(M), [facility] letter sent: Normal Exam Mammogram BI-RADS: 1 Negative
== END ==
LOC: US 08:01
PROVIDERS: ATTEND Internal Medicine
DX: Z12.31 Encounter for screening mammogram for malignant neoplasm of breast (principal); R22.31 Localized swelling, mass and lump, right upper limb
CPT/HCPCS: 76882; 77067

== ENCOUNTER 2019-03-25 19:24 | Emergency (ER) | payer OTHER ==
[~2019-03-25] VITALS: Ht 167.6 cm; Wt 73.5 kg
[2019-03-25] MEDS ORDERED: KETOROLAC TROMETHAMINE 30 MG/ML VIAL IV STA (20:04)
[2019-03-25] MEDS ORDERED: HYDROCODONE/APAP 10MG-325MG TAB PO ONE (20:15)
[2019-03-25] MEDS ORDERED: DEXAMETHASONE SOD PHOS 10 MG/1 ML VIAL IM ONE (20:15)
[2019-03-25] MEDS ORDERED: CYCLOBENZAPRINE HCL 10 MG TAB PO ONE (20:15)
[2019-03-25] MEDS ORDERED: KETOROLAC TROMETHAMINE 60 MG/2 ML VIAL IM ONE (20:15)
--- NOTE | 2019-03-25 22:21 | Diagnostic Imaging Report ---
Exam: Lumbar spine MRI without IV contrast History: Low back pain, incontinence Comparison studies: None Technique: Sagittal and axial T2 , sagittal T1 and IR, axial spin density oblique, coronal T2. Intravenous contrast: None Findings: Number of lumbar vertebral bodies: 5. Alignment: Straight lumbar curvature may be positional. Mild lumbar curvature convex to the right. Incidental partially imaged 2.0 cm T2 hyperintense left renal cyst. Soft tissues: No T2 hyperintense inflammatory changes. Paraspinal muscles: No signal abnormalities. Well-preserved. No atrophic changes Lower thoracic cord: Normal in signal and morphology. The tip of the conus is at L1-L2. Cauda equina: No masses. No arachnoiditis. Vertebrae: Focal edema with associated minimal depression and along the left superior L3 endplate may reflect fracture or developing degenerative Schmorl's nodes secondary to stress response. No other fracture. Mild degenerative endplate edema at L5-S1 with shallow endplate Schmorl's nodes. Degenerative changes: T9 through T12: Mildly degenerated T9-T10 and T10-T11 discs with loss of T2 disc signal. Small disc bulge at T10-T11. Patent canal and foramina. L1-L2: Mildly degenerated disc with loss of T2 disc signal. Asymmetric right disc bulge and mildly thickened ligamentum flavum with mild right foraminal stenosis. No significant canal or left foraminal stenosis. L2-L3: Mildly degenerated disc with loss of disc height loss of T2 disc signal. Asymmetric right disc bulge, mildly thickened ligamentum flavum with mild canal stenosis. No significant foraminal stenosis. L3-L4: Mildly degenerated disc with mild loss of disc height loss of T2 disc signal. Disc bulge with left foraminal disc osteophyte complex, thickened ligamentum flavum and left facet arthrosis with mild canal stenosis, mild right foraminal stenosis and severe left foraminal stenosis. L4-L5: Mildly degenerated disc with loss of disc height loss of T2 disc signal. Disc osteophyte complex, thickened ligamentum flavum and bilateral facet arthrosis with mild canal stenosis and severe bilateral foraminal stenosis per L5-S1: Mildly degenerated disc with loss of disc height loss of T2 disc signal. Degenerative endplate changes are present with mild endplate edema. Disc osteophyte complex, thickened ligamentum flavum and mild facet arthrosis with severe bilateral foraminal stenosis. No significant canal stenosis. Included sacroiliac joints: No effusion or marrow edema. IMPRESSION: 1. Focal edema with minimal depression along the left L3 endplate may reflect focal endplate fracture and/or degenerative stress response with acute Schmorl's node formation. 2. Mild multilevel disc degeneration with degenerative endplate edema at L5-S1. 3. Mild degenerative canal stenosis from L2 to L5. 4. Severe degenerative foraminal stenosis on the left at L3-L4 and bilaterally at L4-L5 and at L5-S1. Signed by: Dr. Vineet Hawk M.D. on 03/25/2019 10:18 PM
[2019-03-25] MEDS ORDERED: LIDOCAINE 5% PATCH TP ONE (22:45)
[2019-03-25] MEDS ORDERED: ULTRAM50 MG PO (22:49)
[2019-03-25] MEDS ORDERED: TYLENOL WITH C1 EACH PO (22:49)
[2019-03-25 22:53] VITALS: BP 143/64
== END 2019-03-25 23:17 | disposition home or self-care (01) ==
LOC: ER 19:24
DX: M54.5 Low back pain (principal); I10 Essential (primary) hypertension; E78.5 Hyperlipidemia, unspecified; I25.10 Atherosclerotic heart disease of native coronary artery without angina pectoris; J44.9 Chronic obstructive pulmonary disease, unspecified; F41.9 Anxiety disorder, unspecified; I25.2 Old myocardial infarction; Z95.5 Presence of coronary angioplasty implant and graft; Z85.828 Personal history of other malignant neoplasm of skin
CPT/HCPCS: 72148; 96372; 99283; J1100; J1885

== ENCOUNTER → 2019-03-30 | Outpatient (CLI) | payer OTHER ==
[~2019-03-30] MED LIST changes: +TYLENOL WITH C1 EACH PO
--- NOTE | 2019-03-30 09:51 | Diagnostic Imaging Report ---
Exam: Bone mineral density study. History: 58-year-old female. Comparison: None. Discussion: Evaluation of the left hip and lumbar spine was performed utilizing DEXA Hologic bone densitometer. The study is technically adequate. The patient's fracture risk is compared to an age-matched control. Lumbar spine total bone mineral density: 1747 gm/cm2, T-score is -2.7, Z-score is -1.4. No previous comparison. Left femoral neck bone mineral density: 0.578 g/cm2, T-score is -2.4, Z-score is -1.2. No previous comparison.. Impression: Bone mineralization by WHO Classification using T score is osteoporosis, fracture risk is high. <T score: NL = -1 or higher Osteopenia = -1 to -2.5 Osteoporosis = -2.5 or lower Z score: < - 1.5 concerning for path> Recommendations: Medical evaluation for secondary causes of low bone mineral density may be appropriate. Correlate clinically for the necessity and timing of the next bone mineral density study. National Osteoporosis Foundation recommendations: Initiate therapy to reduce fracture risk in postmenopausal women with -BMD t-scores below -2 by central DXA with no risk factors -BMD t-scores below -1.5 by central DXA with one or more risk factors (first deg relative with hip fracture, prior personal fracture, low body weight, smoking) -A prior vertebral or hip fracture AACE (Clinical Endocrinology) recommends treating the following: Postmenopausal women who have osteoporosis as diagnosed by fragility fractures or t scores -2.5 or below Postmenopausal women who have risk factors (including fh of hip fracture, low body weight, smoking, risk of falling, high bone turnover, advancing age) and borderline low BMD T scores of -1.5 or below Adequate intake of calcium (at least 1200mg/day) and vitamin D (400-800 IU/day). Regular weight bearing and muscle - strengthening exercises Avoid smoking and excessive alcohol Signed by: Everton Lora on 03/30/2019 9:47 AM
== END ==
LOC: DX 08:32
PROVIDERS: ATTEND Internal Medicine
DX: M85.88 Other specified disorders of bone density and structure, other site (principal)
CPT/HCPCS: 77080

== ENCOUNTER 2019-06-13 08:59 | Outpatient (RCR) | payer OTHER | END 2019-06-15 | LOC: PT 08:59 | PROVIDERS: ATTEND Internal Medicine | DX: M54.16 Radiculopathy, lumbar region (principal); M16.12 Unilateral primary osteoarthritis, left hip ==

== ENCOUNTER 2019-07-06 11:00 | Outpatient (RCR) | payer OTHER | END 2019-07-15 | LOC: PT 11:00 | PROVIDERS: ATTEND Internal Medicine | DX: M54.16 Radiculopathy, lumbar region (principal); M16.12 Unilateral primary osteoarthritis, left hip | CPT/HCPCS: 97139 ==

== ENCOUNTER → 2020-01-06 | Outpatient (CLI) | payer OTHER ==
[~2020-01-06] VITALS: Ht 167.6 cm; Wt 86.2 kg
[~2020-01-06] MED LIST changes: +CARVEDILOL6.25 MG PO; +DICYCLOMINE HCL20 MG PO; +GABAPENTIN300 MG PO; +LASIX20 MG PO; +MOVANTIK25 MG PO; +PANTOPRAZOLE SO40 MG PO
== END ==
LOC: DX 13:34 → EDSTATUS 01-10 09:00
PROVIDERS: ATTEND Internal Medicine Cardiovascular Disease
DX: Z01.818 Encounter for other preprocedural examination (principal); I73.9 Peripheral vascular disease, unspecified; Z11.59 Encounter for screening for other viral diseases
CPT/HCPCS: 87635

== ENCOUNTER → 2020-07-08 | Outpatient (CLI) | payer OTHER ==
--- NOTE | 2020-07-08 19:19 | Diagnostic Imaging Report ---
Hepatobiliary Scan with Gallbladder Ejection Fraction Reason for exam: Cholelithiasis; chronic abdominal pain Technique: Following intravenous administration of 5.6 millicuries of Tc-99m mebrofenin, dynamic images of the abdomen in the anterior projection were obtained through 30 minutes. Sincalide (CCK analog) 1.7 micrograms was administered intravenously over 30 minutes with additional imaging for determination of gallbladder ejection fraction. Discussion: Perfusion of the liver is normal. Extraction of tracer by the liver parenchyma is normal. Tracer appears promptly within the biliary tract. The gallbladder begins to fill by 12 minutes post injection of tracer and fills adequately. Tracer is seen in the small bowel by 20 minutes. The gallbladder ejection fraction with sincalide is 36% (normal greater than 40%). Impression: 1. Filling of the gallbladder excludes acute cystic duct obstruction/acute cholecystitis. 2. The decreased gallbladder ejection fraction of 36% supports the clinical diagnosis of chronic cholecystitis/gallbladder dyskinesia. Signed by: Dr. [place] Lester M.D. on 07/08/2020 7:15 PM
== END ==
LOC: NM 14:34
PROVIDERS: ATTEND Internal Medicine
DX: K80.20 Calculus of gallbladder without cholecystitis without obstruction (principal)
CPT/HCPCS: 78227; A9537